=== PATIENT | female | born 1995 | race Caucasian/White ===

== ENCOUNTER 2018-06-27 09:13 | Day surgery (SDC) | payer BC ==
[~2018-06-27 09:13] MED LIST: CEFAZOLIN 2 GM/50 ML (PMX) 50 ML IVPB; SOD CHLORIDE 0.9% 1,000 ML IV
[2018-06-27] MEDS ORDERED: PROPOFOL 20 ML (12:11)
[2018-06-27] MEDS ORDERED: ETOMIDATE 20 MG INJ (12:11)
[2018-06-27] MEDS ORDERED: FENTAnyl 50 MCG/ML VIAL (12:12)
[2018-06-27] MEDS ORDERED: LIDOCAINE 1% (MDV) 20 ML INJ (12:12)
[2018-06-27] MEDS ORDERED: MIDAZOLAM 1 MG/ML 2 ML INJ (12:12)
[2018-06-27] MEDS ORDERED: ISOSULFAN BLUE 1% 5 ML INJ SC (12:53)
[2018-06-27] MEDS ORDERED: ONDANSETRON 4 MG INJ (13:21)
[2018-06-27] MEDS ORDERED: DEXAMETHASONE 4 MG/ML 1 ML INJ (13:21)
[2018-06-27] MEDS ORDERED: CEFAZOLIN 1 GM INJ (13:21)
[2018-06-27] MEDS: BUPIVACAINE 0.25% (MPF) 30 ML INJ (13:29)
[2018-06-27] MEDS ORDERED: HYDROCODONE/APAP (5/325) TAB PO (14:00)
[2018-06-27] MEDS ORDERED: HYDROmorphONE 1 MG/5 ML IV SYRINGE IV ×2 (14:00)
== END 2018-06-27 15:03 | disposition home or self-care (01) ==
LOC: SDS 09:13
DX: D24.1 Benign neoplasm of right breast (principal); I10 Essential (primary) hypertension
CPT/HCPCS: 14001; 84703; 88307